=== PATIENT | female | born 1960 | race Caucasian/White ===

== ENCOUNTER → 2016-07-24 08:31 | Outpatient (CLI) | payer MEDICAID | END | disposition home or self-care (01) | LOC: D.MRI 08:31 | DX: M54.12 Radiculopathy, cervical region (principal) ==

== ENCOUNTER 2020-07-28 13:10 | Emergency (ER) | payer BC ==
[~2020-07-28] VITALS: Ht 162.6 cm; Wt 45.5 kg
[2020-07-28 13:16] VITALS: Ht 162.6 cm; Wt 45.5 kg
[2020-07-28] MEDS ORDERED: ALDACTONE25 MG PO (13:19)
[2020-07-28] MEDS ORDERED: BUSPAR10 MG PO (13:19)
[2020-07-28 13:37] LABS: BASOPHILS 0.9 % (0-2); EOSINOPHILS 1.4 % (0-7); HEMATOCRIT 46.3 % (36.0-48.0); HEMOGLOBIN 15.6 g/dL (12-16); MCH 30.9 pg (26.0-34.0); MCHC 33.7 g/dL (31.0-37.0); MCV 91.6 fL (80.0-100.0); MEAN PLATELET VOLUME 9.3 fL (7.4-10.4); MONOCYTES 8.1 % (2-11); NEUTROPHILS 67.6 % (40-80); RBC 5.05 10x6/uL (4.00-5.40); RDW 13.5 % (11.5-14.5); WBC 10.8 10x3/uL (4.8-10.8)
[2020-07-28 13:43] LABS: PLATELET COUNT 213 10x3/uL (130-400)
[2020-07-28 13:44] LABS: APTT 27.3 SECONDS (22.8-39.4); INR 0.97 (0.85-1.17); PROTIME 11.9 SECONDS (11.6-15.0)
[2020-07-28 14:14] LABS: CALC OSMOLALITY 278 mosm/kg (275-300); CALCIUM 9.7 mg/dL (8.5-10.1); CARBON DIOXIDE 26.2 mmol/L (21.0-32.0); CHLORIDE - SERUM 101 mmol/L (98-107); GLUCOSE 91 mg/dL (74-106); POTASSIUM - SERUM 3.7 mmol/L (3.5-5.1); SODIUM 138 mmol/L (136-145); UREA NITROGEN 20 mg/dL (7-18); eGFR NON AFRICAN AMERICAN 60 mL/min (90-120)
[2020-07-28 14:29] LABS: ALBUMIN 4.2 g/dL (3.4-5.0); ALKALINE PHOSPHATASE 74 U/L (30-120); ALT (SGPT) 21 U/L (10-68); BILIRUBIN - TOTAL 1.16 mg/dL (0.2-1.3); CKMB 2.3 U/L (0.0-3.6); CREATINE KINASE 112 UL (21-215); PRO BNP 201 pg/mL (0-125); PROTEIN - SERUM 7.6 g/dL (6.4-8.2)
[2020-07-28 14:32] LABS: TROPONIN-I < 0.017 ng/mL (0.000-0.060)
[2020-07-28] MEDS ORDERED: ATIVAN0.5 MG PO (16:09)
[2020-07-28 16:19] VITALS: BP 135/88
== END 2020-07-28 16:19 | disposition home or self-care (01) ==
LOC: D.ER 13:10
PROVIDERS: Family Medicine
DX: F41.9 Anxiety disorder, unspecified (principal); F43.0 Acute stress reaction; R06.02 Shortness of breath